=== PATIENT | female | born 1970 | race Caucasian/White ===

== ENCOUNTER 2019-08-31 18:43 | Emergency (ER) | payer SELFPAY ==
[~2019-08-31] VITALS: Ht 172.7 cm; Wt 77.7 kg
[2019-08-31] MEDS ORDERED: METOCLOPRAMIDE INJ 10MG/2ML VIAL (J2765) IV ONE (19:15)
[2019-08-31] MEDS ORDERED: NS 1,000 ML IV ONE (19:15)
[2019-08-31] MEDS ORDERED: KETOROLAC 30 MG/ML VIAL (J1885) IV ONE (19:15)
[2019-08-31] MEDS ORDERED: DICYCLOMINE 10 MG CAP PO ONE (19:15)
[2019-08-31 19:43] LABS: BASO % 0.5 % (0.0-1.0); EOS % 0.3 % (0.0-3.0); HEMOGLOBIN 13.8 g/dl (12.0-15.5); LYMPH % 22.5 % (24.0-44.0); MEAN CORPUSCULAR HEMOGLOBIN 30.5 pg (27.0-33.0); MEAN CORPUSCULAR HGB CONC 33.7 g/dl (32.0-36.5); MEAN CORPUSCULAR VOLUME 90.5 fl (80.0-96.0); MONO # 0.5 10^3/uL (0.0-0.8); MONO % 5.8 % (0.0-5.0); NEUTROPHILS # 6.1 10^3/uL (1.5-8.5); NEUTROPHILS % 70.8 % (36.0-66.0); PLATELET COUNT, AUTOMATED 332 10^3/uL (150-450); RED BLOOD COUNT 4.53 10^6/uL (4.00-5.40); WHITE BLOOD COUNT 8.7 10^3/uL (4.0-10.0)
[2019-08-31] MEDS ORDERED: ONDANSETRON 4MG/2ML VIAL (J2405) IV ONE (19:45)
[2019-08-31 19:54] LABS: INR 1.02; PROTHROMBIN TIME 13.1 SECONDS (11.8-14.0)
[2019-08-31 19:55] LABS: PARTIAL THROMBOPLASTIN TIME 33.4 SECONDS (25.0-38.4)
[2019-08-31 20:14] LABS: ALBUMIN 3.6 GM/DL (3.2-5.2); ALT/SGPT 24 U/L (12-78); BILIRUBIN,DIRECT 0.2 MG/DL (0.0-0.2); BILIRUBIN,TOTAL 1.6 MG/DL (0.2-1.0); CK-MB VALUE MASS 1.1 NG/ML (<3.6); CPK CREATINE PHOSPHOKINASE 46 U/L (26-192); HCG, SERUM QUANTITATIVE 5 MIU/ML; LIPASE 42 U/L (73-393); MB/CK RELATIVE INDEX 2.39 (< OR =4); TOTAL PROTEIN 6.9 GM/DL (6.4-8.2); TROPONIN I < 0.02 NG/ML (< 0.10)
[2019-08-31] MEDS ORDERED: MORPHINE 4 MG/ML 1ML VIAL/SYRINGE (J2270) IV ONE (20:30)
[2019-08-31] MEDS ORDERED: LACTULOSE 20 GM/30 ML SYRUP UD PO ONE (23:15)
[2019-08-31] MEDS ORDERED: ONDANSETRON 4 MG ORAL DISINTEGRATING TAB (Q0162 PER 1MG) PO ONE (23:15)
[2019-08-31] MEDS ORDERED: ONDA4TAB6 PO (23:24)
[2019-08-31] MEDS ORDERED: LACT10SO29 PO (23:24)
[2019-08-31 23:25] VITALS: BP 131/71
--- NOTE | 2019-09-01 08:55 | REP ---
Abdomen series: Three views. History: Epigastric pain and vomiting. Findings: Upright chest radiograph shows no evidence of infiltrate or free subdiaphragmatic air. There is mild discoid atelectasis versus linear fibrosis at the left base. Heart size is normal. Supine and erect views of the abdomen show a normal bowel gas pattern with air and stool in a nondistended colon. No small bowel dilation is seen. Psoas margins and flank stripes are intact. 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 Mild degenerative changes are seen in the lumbar spine. Impression: Unremarkable abdomen series. Linear fibrosis versus plate-like atelectasis left lung base. Normal bowel gas pattern. Electronically Signed by Rangel Machuca MD 09/01/2019 09:11 A
--- NOTE | 2019-09-01 17:58 | ECGEPIP ---
[facility] - ED Test Date: 2019-08-31 Pat Name: BRIELLE ALEMAN Department: Room: - Gender: Female Chronic Specialist: [facility] : 1970 Requested By: TONY Hernandez PA-C Order Number: [id number] Reading MD: Yamilet Hayes Measurements Intervals [place] Rate: 66 P: 6 VA: 179 QRS: 40 QRSD: 92 T: 58 QT: 398 QTc: 419 Interpretive Statements SINUS RHYTHM WITH OCCASIONAL VENTRICULAR PREMATURE COMPLEXES LOW VOLTAGE LIMB NO PRIOR Electronically Signed on 09-01-2019 17:58:23 EST by Yamilet Hayes
== END 2019-08-31 23:26 | disposition home or self-care (01) ==
LOC: M ED 18:43
DX: K59.00 Constipation, unspecified (principal); R89.1 Abnormal level of hormones in specimens from other organs, systems and tissues; Z88.8 Allergy status to other drugs, medicaments and biological substances; Z91.041 Radiographic dye allergy status
CPT/HCPCS: 74021; 80047; 80076; 81001; 82550; 82553; 83605; 83690; 84484; 84702; 85025; 85610; 85730; 93005; 96361; 96374; 96375; 99284; J1885; J2270; J2405; Q0162

== ENCOUNTER → 2019-09-03 | Outpatient (CLI) | payer SELFPAY ==
[~2019-09-03] MED LIST: LACT10SO29 PO; ONDA4TAB6 PO
== END ==
LOC: M LAB 09:32
PROVIDERS: ATTEND Physician Assistant
DX: Z32.01 Encounter for pregnancy test, result positive (principal)